=== PATIENT | male | born 1970 | race Caucasian/White ===

== ENCOUNTER 2023-12-08 12:00 | Emergency (ER) | payer MEDICAID ==
[~2023-12-08] VITALS: Ht 180.3 cm; Wt 90.0 kg
[2023-12-08 12:02] VITALS: TEMP 98.9; O2SAT 100
[2023-12-08] MEDS ORDERED: LIDOCAINE HCL 1% 20ML VIAL INFIL ONE (16:00)
[2023-12-08] MEDS ORDERED: TOPUD MT (16:34)
[2023-12-08] MEDS ORDERED: DICL500C MT (16:34)
[2023-12-08] MEDS ORDERED: IBUP-1525 MT (16:34)
[2023-12-08 16:57] VITALS: BP 128/76; PULSE 74; RESP 16; O2SAT 99
== END 2023-12-08 16:58 | disposition home or self-care (01) ==
LOC: ER 12:00
DX: S50.862A Insect bite (nonvenomous) of left forearm, initial encounter (principal); L02.414 Cutaneous abscess of left upper limb; Z79.899 Other long term (current) drug therapy; Z98.890 Other specified postprocedural states; X58.XXXA Exposure to other specified factors, initial encounter; Y93.89 Activity, other specified; Y92.89 Other specified places as the place of occurrence of the external cause; Y99.8 Other external cause status
CPT/HCPCS: 10060; 99284; Z7610 ×3